=== PATIENT | male | born 1955 | race Caucasian/White ===

== ENCOUNTER 2023-02-10 12:31 | Emergency (ER) | payer OTHER ==
[2023-02-10 12:49] VITALS: TEMP 98.4; BMI 35.4
[2023-02-10] MEDS ORDERED: ONDANSETRON *ODT* 4 MG TABLET SL ONE (13:37)
[2023-02-10] MEDS ORDERED: KETOROLAC TROMETHAMINE 30 MG/1 ML VIAL IM ONE (13:37)
[2023-02-10] MEDS ORDERED: ONDANSETRON *ODT* 4 MG TABLET ONE (13:39)
[2023-02-10] MEDS ORDERED: KETOROLAC TROMETHAMINE 30 MG/1 ML VIAL ONE (13:39)
[2023-02-10] MEDS ORDERED: LIDOCAINE 5% TOPICAL PATCH TP ONE (13:39)
[2023-02-10] MEDS ORDERED: LIDOCAINE 5% TOPICAL PATCH ONE (13:40)
[2023-02-10 14:44] LABS: INR 1.1 (0.83-1.09); PROTHROMBIN TIME (PATIENT) 12.8 SEC (9.7-13.0)
[2023-02-10 14:45] LABS: BASO % 0.5 % (0-2.0); EOS % 0.6 % (0-4.5); HEMATOCRIT 43.3 % (35.4-49); HEMOGLOBIN 14.6 GM/dL (11.7-16.9); LYMPH % 16.6 % (8-40); MCH 29.4 pg (25.7-33.7); MCHC 33.8 g/dl (32.0-35.9); MEAN PLT VOLUME 7.9 fl (7.5-11.1); MONO % 7.9 % (3.8-10.2); NEUT % 74.4 % (42.8-82.8); PLATELET COUNT 312 10^3/uL (134-434); RBC 4.97 M/mm3 (4.00-5.60); RDW 13.1 % (11.9-15.9); WHITE BLOOD COUNT 13.4 K/mm3 (4.0-10.0)
[2023-02-10 15:05] LABS: POTASSIUM 4.4 mmol/L (3.5-5.1)
[2023-02-10 15:07] LABS: BLOOD UREA NITROGEN 16.5 mg/dL (7-18); CALCIUM 9.4 mg/dL (8.5-10.1)
[2023-02-10 15:08] LABS: ALBUMIN 3.8 g/dl (3.4-5.0); LIPASE 67 U/L (73-393)
[2023-02-10 15:09] LABS: AMYLASE 31 U/L (25-115)
[2023-02-10 15:11] LABS: CREATININE 0.9 mg/dL (0.55-1.3)
[2023-02-10 15:12] LABS: BILIRUBIN,TOTAL 1.4 mg/dL (0.2-1); TOT PROT 7.4 g/dl (6.4-8.2)
[2023-02-10] MEDS ORDERED: SODIUM CHLORIDE 0.9% 500 ML INFUS.BAG IV ONE (15:26)
[2023-02-10] MEDS ORDERED: METOCLOPRAMIDE HCL INJECTION 10 MG/2 ML VIAL IVPUSH ONE (16:35)
[2023-02-10] MEDS ORDERED: METOCLOPRAMIDE HCL INJECTION 10 MG/2 ML VIAL ONE (16:46)
[2023-02-10 17:30] VITALS: BP 136/88; PULSE 86; RESP 18
[2023-02-10] MEDS ORDERED: LIDOCAINE PATCH REMOVAL MC ONE (22:00)
== END 2023-02-10 17:30 | disposition home or self-care (01) ==
LOC: JER 12:31 → JERFT 12:31 → JER 17:30
PROC: 3E033GC Introduction of Other Therapeutic Substance into Peripheral Vein, Percutaneous Approach (ICD-10-PCS; principal; 2023-02-10)
PROC: 3E0233Z Introduction of Anti-inflammatory into Muscle, Percutaneous Approach (ICD-10-PCS; 2023-02-10)
DX: M54.2 Cervicalgia (principal); Z91.81 History of falling
CPT/HCPCS: 36415; 70450-TC; 71046-TC-FY; 72125-TC; 80053; 82150; 82550; 83690; 84484; 85025; 85610; 93005; 93010; Q0162